=== PATIENT | female | born 1945 | race Caucasian/White ===

== ENCOUNTER 2017-03-31 09:13 | Outpatient (CLI) | payer MEDICARE ==
--- NOTE | 2017-04-03 16:20 | Mammography Report ---
DIGITAL SCREENING MAMMOGRAM: 03/31/2017 CLINICAL INDICATION: A 71-year-old with history of bilateral implants, for screening. This is the patient's baseline examination. TECHNIQUE: Routine CC and MLO projections were obtained of the breasts. Bilateral implant-displaced views. FINDINGS: The breasts demonstrate scattered fibroglandular densities bilaterally. Coarse, typically benign calcifications are present. Bilateral subglandular silicone implants are present, with bilater al implant rupture, with silicone in the surrounding soft tissues. No suspicious masses, clustered mi crocalcifications, or regions of architectural distortion are identified. IMPRESSION: BENIGN FINDINGS. RECOMMENDATION: ROUTINE ANNUAL SCREENING UNLESS OTHERWISE CLINICALLY INDICATED. CONSIDER SURGICAL REF ERRAL FOR BILATERAL IMPLANT RUPTURES. BIRADS CATEGORY 2-BENIGN FINDINGS. STANDARD QUALIFYING STATEMENTS 1. This examination was reviewed with the aid of Computer-Aided Detection (CAD). 2. A negative or benign imaging report should not delay biopsy if clinically suspicious findings are present. Consider surgical consultation if warranted. More than 5% of cancers are not identified by i maging. 3. Dense breasts may obscure an underlying neoplasm. JOB #: [id number] EXT JOB #:[id number]
== END 2017-03-31 09:14 | disposition home or self-care (01) ==
LOC: DI.N 09:13
PROVIDERS: ATTEND Physician Assistant
DX: Z12.31 Encounter for screening mammogram for malignant neoplasm of breast (principal); Z98.82 Breast implant status
CPT/HCPCS: 77067

== ENCOUNTER 2021-09-30 11:48 | Outpatient (CLI) | payer MEDICARE ==
[2021-09-30 17:55] LABS: BASOPHILS % (AUTO) 0.5 %; EOSINOPHILS % (AUTO) 0.3 %; HCT - HEMATOCRIT 46.7 % (37.0-47.0); LYMPHOCYTES # (AUTO) 2.8 10^3/uL (1.5-3.5); LYMPHOCYTES % (AUTO) 37.8 %; MEAN CORPUSCULAR HEMOGLOBIN 29.4 pg (27.0-31.0); MEAN CORPUSCULAR HGB CONC 32.1 g/dL (32.0-36.0); MEAN CORPUSCULAR VOLUME 91.6 fL (81.0-99.0); MEAN PLATELET VOLUME 10.3 fL (7.9-10.8); MONOCYTES # (AUTO) 0.4 10^3/uL (0.0-1.0); MONOCYTES % (AUTO) 5.4 %; NEUTROPHILS # (AUTO) 4.1 10^3/uL (1.5-6.6); NEUTROPHILS % (AUTO) 55.7 %; PLT - PLATELET COUNT 327 10^3/uL (130-450); RED CELL DISTRIBUTION WIDTH 14.3 % (12.0-15.0); WHITE BLOOD COUNT 7.4 x10^3/uL (4.8-10.8)
[2021-09-30 18:17] LABS: ALBUMIN 4.3 g/dL (3.2-5.5); ALBUMIN/GLOBULIN RATIO 1.4 (1.0-2.2); ALKALINE PHOSPHATASE 72 IU/L (42-121); ALT ALANINE AMINOTRANSFERASE 17 IU/L (10-60); AST ASPARTATE AMINOTRANSFERASE 18 IU/L (10-42); BILIRUBIN,TOTAL 0.5 mg/dL (0.2-1.0); BUN - BLOOD UREA NITROGEN 11 mg/dL (6-20); CALCIUM 9.5 mg/dL (8.5-10.3); CARBON DIOXIDE - CO2 28 mmol/L (21-32); CHLORIDE 100 mmol/L (101-111); CHOL/HDL RATIO 5.2 (<4.4); CHOLESTEROL 264 mg/dL; CREATININE 0.7 mg/dL (0.4-1.0); GFR - MDRD 81 (>89); GLUCOSE 106 mg/dL (70-100); HDL CHOLESTEROL 51 mg/dL; LDL CHOLESTEROL,CALCULATED 184 mg/dL; LDL/HDL RATIO 3.6 (<4.4); POTASSIUM 4.5 mmol/L (3.5-5.0); SODIUM 139 mmol/L (135-145); TOTAL PROTEIN 7.4 g/dL (6.7-8.2); TRIGLYCERIDES 143 mg/dL; VLDL CHOLESTEROL 29 mg/dL
[2021-09-30 18:28] LABS: THYROID STIMULATING HORMONE 1.31 uIU/mL (0.34-5.60)
== END 2021-09-30 11:49 | disposition home or self-care (01) ==
LOC: LAB.N 11:48
PROVIDERS: ATTEND Nurse Practitioner Family
DX: Z00.00 Encounter for general adult medical examination without abnormal findings (principal); Z13.220 Encounter for screening for lipoid disorders
CPT/HCPCS: 36415; 80053; 80061; 83721; 84443; 85025

== ENCOUNTER 2021-10-27 09:31 | Outpatient (CLI) | payer MEDICARE ==
--- NOTE | 2021-10-27 15:09 | Ultrasound Report ---
PROCEDURE: Abdomen Limited INDICATIONS: LIVER CYST TECHNIQUE: Real-time scanning was performed of the abdominal and retroperitoneal organs, with image documentatio n. COMPARISON: CT of chest dated 10/12/2021. FINDINGS: Liver: Liver is normal in size and homogeneous in echotexture. There is a 4.9 x 3.9 x 3.7 cm complex appearing cystic structure seen in right hepatic lobe with internal debris is. No internal vasculari ty is seen. 2 smaller simple appearing cysts are also noted in right hepatic lobe measures up to 1.2 x 0.8 x 0.8 cm in size. No solid hepatic lesion is noted. Normal hepatopedal flow is seen in patent m ain portal vein. Gallbladder: There is no gallstone. No gallbladder wall thickening or pericholecystic fluid. No sonog raphic Guo's sign. Biliary ducts: Intrahepatic bile ducts are non-dilated. Extrahepatic bile duct caliber measures 4.3 mm. Normal is 6-7 mm or less in diameter, or 10 mm or less post-cholecystectomy. Kidneys: Right kidney measures 9.8 cm in length and 1 cm and cortical thickness. No hydronephrosis or nephrolithiasis. No solid masses. Miscellaneous: No free abdominal fluid. IMPRESSION: 1. 3 right hepatic cysts including a large complex appearing cyst as described above with internal de bris. Sonographic follow-up is recommended. No solid appearing hepatic lesion. 2. Rest of the exam is unremarkable. Reviewed by: Jean-Paul Short MD on 10/27/2021 3:08 PM PDT Approved by: Jean-Paul Short MD on 10/27/2021 3:08 PM PDT Station ID: [id number]
== END 2021-10-27 09:32 | disposition home or self-care (01) ==
LOC: DI 09:31
PROVIDERS: ATTEND Nurse Practitioner Family
DX: K76.89 Other specified diseases of liver (principal)

== ENCOUNTER 2022-01-05 12:10 | Outpatient (CLI) | payer MEDICARE ==
[2022-01-05] MEDS ORDERED: DIATRIZOATE MEGLU/DIATRIZO SOD 30 ML BOTTLE PO ONE ×2 (12:33→14:34)
--- NOTE | 2022-01-05 17:12 | CT Report ---
PROCEDURE: Abdomen/Pelvis W INDICATIONS: RIGHT UPPER QUAD PAIN CONTRAST: IV CONTRAST: Optiray 320 ml: 100 PO CONTRAST: Optiray 320 ml50 TECHNIQUE: After the administration of contrast, 5 mm thick sections acquired from the diaphragms to the sym physis. 5 mm thick coronal and sagittal reformats were acquired. For radiation dose reduction, the following was used: automated exposure control, adjustment of mA and/or kV according to patient size . COMPARISON: None. FINDINGS: Image quality: Excellent. ABDOMEN: Lung bases: Lung bases demonstrate emphysematous changes and multiple pulmonary cysts. Solid organs: Hepatic hypodensities are unchanged compared to the prior CT and ultrasound, likely cys ts. Gallbladder is normal. Biliary system is non dilated. Pancreas enhances normally. No adrenal nodules. Kidneys demonstrate normal size and enhancement, without hydronephrosis. Peritoneum and bowel: Bowel loops demonstrate normal wall thickness and caliber. No free fluid or a ir. The appendix is normal. Nodes and vessels: No retroperitoneal or mesenteric adenopathy by size criteria. Aorta and inferior vena cava are normal in size. The aorta has atherosclerotic calcifications. Miscellaneous: No ventral hernias. PELVIS: Genitourinary: Bladder wall thickness is normal. Miscellaneous: No inguinal hernias or adenopathy. Bones: No suspicious bony lesions. No vertebral body compression fractures. IMPRESSION: 1. No acute abnormality of the abdomen or pelvis. 2. Stable hepatic hypodensities, likely simple cysts. Reviewed by: Braulio Cullen on 01/05/2022 5:11 PM PDT Approved by: Braulio Cullen on 01/05/2022 5:11 PM PDT Station ID: [id number]
== END 2022-01-05 12:11 | disposition home or self-care (01) ==
LOC: DI 12:10
PROVIDERS: ATTEND Family Medicine
DX: R10.11 Right upper quadrant pain (principal); R63.4 Abnormal weight loss
CPT/HCPCS: 74177; Q9963; Q9967

== ENCOUNTER 2022-03-03 12:34 | Outpatient (CLI) | payer MEDICARE ==
[2022-03-04 18:26] LABS: FECAL OCCULT BLOOD (FIT) NEGATIVE (NEGATIVE)
== END 2022-03-03 23:59 | disposition home or self-care (01) ==
LOC: LAB.R 12:34
PROVIDERS: ATTEND Nurse Practitioner Family
DX: R19.4 Change in bowel habit (principal); R10.11 Right upper quadrant pain; R53.83 Other fatigue
CPT/HCPCS: 82274

== ENCOUNTER 2022-04-19 08:16 | Outpatient (CLI) | payer MEDICARE ==
--- NOTE | 2022-04-19 16:57 | Ultrasound Report ---
PROCEDURE: Abdomen Limited INDICATIONS: ABN CT CHEST, LIVER CYST TECHNIQUE: Real-time focused scanning was performed of the abdomen, with image documentation. COMPARISON: 10/27/2021 FINDINGS: Liver: Liver measures 1.5 cm and is heterogenous. Several hepatic cysts are again noted. Largest righ t measures 1.1 x 1.0 x 0.9 cm it. Complex cyst in the left hepatic lobe has decreased in size now rachael suring overall 2.8 x 2.6 x 2.4 cm, previously 4.9 x 3.9 x 3.7 cm. No intraperitoneal duct dilatation. Gallbladder: Small gallbladder wall polyp measures 4 mm it. No cholelithiasis or gallbladder wall thi ckening. No pericholecystic fluid. Common bile duct measures 6.8 mm. Pancreas: Unremarkable Kidneys: Right kidney measures 10 cm in length. Small right renal cyst measures 1.0 x 0.9 x 0.7 cm. N o hydronephrosis or shadowing calculus. IMPRESSION: 1. Left hepatic complex cyst has decreased in size now measuring 2.[address] correlation for direct comparison Reviewed by: Saud Medina MD on 04/19/2022 3:55 PM AKST Approved by: Saud Medina MD on 04/19/2022 3:55 PM AKST Station ID: [id number]
--- NOTE | 2022-04-19 19:55 | CT Report ---
PROCEDURE: CHEST WO INDICATIONS: ABN CT CHEST, LIVER CYST TECHNIQUE: Noncontrast 1mm axial images were acquired from the pulmonary apices to the posterior costophrenic an gles. Axial 5 mm soft tissue kernel reconstructions were performed as well as 8 mm axial MIP and cor onal and sagittal 5 mm reformations. For radiation dose reduction, the following was used: automate d exposure control, adjustment of mA and/or kV according to patient size. COMPARISON: CT lung screening scan dated 10/12/[address] of abdomen and pelvis dated 01/05/2022. FINDINGS: Image quality: Excellent. Lungs and pleura: 6 mm solid nodule in lateral left lower lobe is unchanged series 4 image 211. 4 mm subpleural nodule in posterior medial right lower lobe is also unchanged series 4 image 215. 2 mm anterior right upper lobe nodule is also unchanged series 4 image 132. No new pulmonary nodule is seen. Again noted is biapical scarring. Moderate centrilobular emphysema i s again seen and unchanged. No pleural effusions or pneumothorax. Central and peripheral airways are patent and normal in caliber. Mediastinum: Heart size is normal. No pericardial effusion. No mediastinal adenopathy by size crit eria. Mild to moderate atherosclerotic calcifications are again noted in coronary vessels and thoraci c aorta. Thoracic aorta and central pulmonary arteries are normal in size. Esophagus is normal in c aliber. No hiatal hernia. Bones and chest wall: No suspicious bony lesions. No vertebral body compression fractures. 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 No axillary or supraclavicul ar adenopathy by size criteria. Peripherally calcified bilateral breast implants are again noted with out signs of rupture. The thyroid is normal in size and there are no incidental findings. Abdomen: Well-circumscribed hypodense areas are again seen involving right and left hepatic lobe isabela sly unchanged in size and appearance from prior study and was better evaluated on previous CT of abdo men and pelvis with contrast. IMPRESSION: 1. Stable bilateral subcentimeter nodules likely represent benign process. Additional follow-up CT ch est in 12 month is recommended. 2. No new pulmonary nodules. Moderate centrilobular emphysema. Biapical scarring and bibasilar depend ent atelectasis. No pleural effusion or pneumothorax. Airway is patent. 3. Stable well-circumscribed hypodensities in liver parenchyma likely represent hepatic cysts. CLINICAL RECOMMENDATION STATEMENTS: In patients <35 years with an ITN detected on CT, MRI, or extrathyroidal ultrasound, the Committee re commends further evaluation with dedicated thyroid ultrasound if the nodule is "e1 cm and has no susp icious imaging features, and if the patient has normal life expectancy. In patients "e35 years with an ITN detected on CT, MRI, or extrathyroidal ultrasound, the Committee r ecommends further evaluation with dedicated thyroid ultrasound if the nodule is "e1.5 cm and has no s uspicious imaging features, and if the patient has normal life expectancy. (ACR, 2014) Reviewed by: Jean-Paul Jack MD on 04/19/2022 7:53 PM PST Approved by: Jean-Paul Jack MD on 04/19/2022 7:53 PM PST Station ID: [id number]
== END 2022-04-19 08:17 | disposition home or self-care (01) ==
LOC: DI 08:16
PROVIDERS: ATTEND Nurse Practitioner Family
DX: R91.8 Other nonspecific abnormal finding of lung field (principal); K76.89 Other specified diseases of liver

== ENCOUNTER 2022-05-13 12:47 | Day surgery (SDC) | payer MEDICARE ==
[~2022-05-13 12:47] MED LIST: PROPOFOL 200 MG/20 ML VIAL IVP ONE
[2022-05-13] MEDS ORDERED: LACTATED RINGERS 1,000 ML IV ONE (13:09)
--- NOTE | 2022-05-13 14:10 | ANESTHESIA ---
Pre-Anesthesia VS, & Labs - Diagnosis abd pain - Procedure EGD Vital Signs: Temp Pulse Resp BP Pulse Ox O2 Flow Rate 37.3 C 89 13 207/96 H 97 0 05/13/22 13:10 05/13/22 13:10 05/13/22 13:10 05/13/22 13:10 05/13/22 13:10 05/13/22 13:10 Height: 5 ft 4 in Weight (kg): 56.2 kg Body Mass Index: 21.2 BMI Classification: Normal - NPO >8 hours - Is Patient ?: No Home Medications and Allergies Home Medications: Ambulatory Orders busPIRone [Buspar] 1 tab PO DAILY 05/13/22 lisinopriL [Zestril] 1 tab PO DAILY 05/13/22 busPIRone [Buspar] 1 tab PO DAILY 05/13/22 lisinopriL [Zestril] 1 tab PO DAILY 05/13/22 Allergies/Adverse Reactions: Allergies Allergy/AdvReac Type Severity Reaction Status Date / Time No Known Drug Allergies Allergy Verified 05/12/22 12:32 Anes History & Medical History - Anesthetic History Anesthesia Complications: reports: No previous complications Family history of Anesthesia Complications: Denies Family history of Malignant Hyperthermia: Denies - Medical History Cardiovascular: reports: High cholesterol Pulmonary: reports: COPD, Pneumonia, Shortness of breath Gastrointestinal: reports: None Urinary: reports: None Musculoskeletal: reports: Osteoarthritis, Chronic back pain Endocrine/Autoimmune: reports: None Skin: reports: Other - Surgical History General: reports: Appendectomy, Bowel surgery Eyes Ears Nose Throat (EENT): reports: Cataracts, Tonsil/Adenoidectomy Gynecologic: reports: Hysterectomy Exam General: Alert, Oriented x3, Cooperative Dental: Dentures full Upper, Dentures full Lower Mouth Openin Fingerbreadth Neck Mobility: Normal Mallampati classification: I Thyromental Distance: 4-6 cm Respiratory: Lungs clear Cardiovascular: Regular rate Plan Anesthesia Type: General, Total IV Consent for Procedure(s) Verified and Reviewed: Yes Code Status: Attempt Resuscitation ASA classification: 2-Mild systemic disease Is this case an emergency?: No
--- NOTE | 2022-05-13 14:31 | HISTORY & PHYSICAL EXAMINATION ---
Chief Complaint - Chief Complaint Chief Complaint: epigastric pain History of Present Illness - History Obtained From Records Reviewed: yes History obtained from: pt Exam Limitations: none - History of Present Illness HPI Comment/Other: history weight loss and epigastric pain. still having pain. weight loss has stabilized. History - Past Medical History Cardiovascular: reports: High cholesterol Respiratory: reports: COPD, Pneumonia, Shortness of breath Endocrine/Autoimmune: reports: None GI: reports: None : reports: None HEENT: reports: Glaucoma Psych: reports: None, Depression Musculoskeletal: reports: Osteoarthritis, Chronic back pain Derm: reports: Other MRSA Hx?: No - Past Surgical History General: reports: Appendectomy, Bowel surgery /[employer]: reports: Hysterectomy HEENT: reports: Cataracts, Tonsil/Adenoidectomy Meds/Allgy - Home Medications Home Medications: Ambulatory Orders Medication Instructions Recorded Confirmed busPIRone [Buspar] 1 tab PO DAILY 05/13/22 05/13/22 lisinopriL [Zestril] 1 tab PO DAILY 05/13/22 05/13/22 - Allergies Allergies/Adverse Reactions: Allergies Allergy/AdvReac Type Severity Reaction Status Date / Time No Known Drug Allergies Allergy Verified 05/12/22 12:32 Review of Systems - Other Findings Other Findings: 10 pt ros as above otherwise unremarkable Exam - Vital Signs Reviewed Vital Signs: Yes Vital Signs: Vital Signs x48h Temp Pulse Resp BP Pulse Ox O2 Flow Rate 05/13/22 13:10 37.3 C 89 13 207/96 H 97 0 - Physical Exam General Appearance: positive: No acute distress, Alert Eyes Bilateral: positive: PERRL, EOMI, No scleral icterus ENT: positive: No signs of dehydration Neck: positive: No JVD, Trachea midline Respiratory: positive: No respiratory distress, Breath sounds nml Cardiovascular: positive: Regular rate & rhythm Abdomen: positive: Non-tender, No distention Neurologic/Psychiatric: positive: Oriented x3 Conclusion/Plan - Problem List (1) Epigastric abdominal pain Conclusion/Plan: plan egd with biopsies
[2022-05-13] MEDS ORDERED: LACTATED RINGERS 700 ML IV ONE (14:56)
--- NOTE | 2022-05-13 15:10 | ANESTHESIA POST OP EVALUATION ---
Anesthesia Post Eval - Post Anesthesia Eval Vitals: Last Vital Signs Temp 36.2 C L 05/13/22 14:52 Pulse 80 05/13/22 14:52 Resp 18 05/13/22 14:52 BP 96/33 L 05/13/22 14:52 Pulse Ox 98 05/13/22 14:52 O2 Flow Rate 0 05/13/22 13:10 CV Function Including HR & BP: Stable Pain Control: Satisfactory Nausea & Vomiting: Negative Mental Status: Baseline Respiratory Status: Airway Patent Hydration Status: Satisfactory Anesthesia Complications: None
[2022-05-13 15:24] VITALS: BP 146/79
== END 2022-05-13 12:48 | disposition home or self-care (01) ==
LOC: SDS 12:47
PROVIDERS: ATTEND Surgery
PROC: 0DB68ZX Excision of Stomach, Via Natural or Artificial Opening Endoscopic, Diagnostic (ICD-10-PCS; 2022-05-13)
PROC: 0DB98ZX Excision of Duodenum, Via Natural or Artificial Opening Endoscopic, Diagnostic (ICD-10-PCS; principal; 2022-05-13 14:30)
DX: R10.13 Epigastric pain (principal); R63.4 Abnormal weight loss; K44.9 Diaphragmatic hernia without obstruction or gangrene; Z68.21 Body mass index [BMI] 21.0-21.9, adult; J44.9 Chronic obstructive pulmonary disease, unspecified; M54.9 Dorsalgia, unspecified; G89.29 Other chronic pain
CPT/HCPCS: 43239; J7120